=== PATIENT | male | born 2000 | race Two or more races ===

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

== ENCOUNTER 2018-05-17 16:20 | Emergency (ER) | payer OTHER ==
[2018-05-17 16:32] VITALS: BP 125/79; PULSE 79; RESP 18; TEMP 97.3
[2018-05-17] MEDS ORDERED: PANTOPRAZOLE 40 MG/10 ML VIAL IVP STA (17:03)
[2018-05-17] MEDS ORDERED: ONDANSETRON 4 MG/2 ML VIAL IVP STA (17:03)
[2018-05-17] MEDS ORDERED: SODIUM CHLORIDE 0.9% 1,000 ML IV STA ×2 (17:03)
--- NOTE | 2018-05-17 17:36 | ED ---
General Adult HPI - General Chief complaint: Urogenital Stated complaint: abdominal pain Time Seen by Provider: 05/17/18 16:42 Source: patient Mode of arrival: ambulatory Limitations: no limitations - History of Present Illness Initial comments: Dictation was produced using [employer] dictation software. please excuse any grammatical, word or spelling errors. Chief Complaint: 17 yo male presents with genital rash. History of Present Illness: She is a 17-year-old male with no significant past medical history presents with genital rash. He states he woke up this morning and noticed that the dorsal portion of his penis was erythematous. Patient denies any exposure to sexually transmitted diseases. Patient denies any di fficulties urinating. No history of sexually transmitted diseases. Denies any tenderness. The ROS documented in this emergency department record has been reviewed and confirmed by me. Those systems with pertinent positive or negative responses have been documented in the HPI. All other systems are other negative and/or noncontributory. PHYSICAL EXAM: General Impression: Alert and oriented x3, not in acute distress HEENT: Normocephalic atraumatic, extra-ocular movements intact, pupils equal and reactive to light bilaterally, mucous membranes moist. Cardiovascular: Heart regular rate and rhythm, S1&S2 audible, no murmurs, rubs or gallops Chest: Lungs clear to auscultation bilaterally, no rhonchi, no wheeze, no rales Abdomen: Bowel sounds present, abdomen soft, non-tender, non-distended, no organomegaly Musculoskeletal: Pulses present and equal in all extremities, no peripheral edema Motor: no focal deficits noted Neurological: CN II-XII grossly intact, no focal motor or sensory deficits noted Skin: Intact with no visualized rashes Psych: Normal affect and mood : Erythema, scaly rash over the dorsum of the glans and foreskin. ED course: 17-year-old no clinical presentation of balanoposthitis signs upon arrival are within acceptable limits. Patient given antifungal and antibacterial cream. Patient told to follow up with primary care physician upon discharge. Patient refusing STD testing at this time. - Related Data Previous Rx's Medication Instructions Recorded Clotrimazole [Clotrimazole 1% Top 1 applic TOPICAL BID 14 Days #1 05/17/18 Soln] tube Stupfprn-Qreswoyahe-[id number] Oint 1 applic TOPICAL QID #1 tube 05/17/18 [Triple Antibiotic Ointment] Allergies Allergy/AdvReac Type Severity Reaction Status Date / Time bee venom protein (honey bee) Allergy Swelling Verified 05/17/18 16:53 Review of Systems ROS Statement: Those systems with pertinent positive or pertinent negative responses have been documented in the HPI. ROS Other: All systems not noted in ROS Statement are negative. Past Medical History Past Medical History: No Reported History History of Any Multi-Drug Resistant Organisms: None Reported Past Surgical History: No Surgical Hx Reported Past Psychological History: ADD/ADHD Smoking Status: Never smoker Past Alcohol Use History: None Reported Past Drug Use History: None Reported General Exam Limitations: no limitations Course Vital Signs 05/17/18 16:30 Temperature 97.3 F L Pulse Rate 79 Respiratory 18 Rate Blood Pressure 125/79 O2 Sat by Pulse 98 Oximetry Disposition Clinical Impression: Balanoposthitis Disposition: HOME SELF-CARE Instructions (If sedation given, give patient instructions): Balanitis (ED) Prescriptions: Clotrimazole [Clotrimazole 1% Top Soln] 1 applic TOPICAL BID 14 Days #1 tube Dqorkuol-Zkxppcoghw-[id number] Oint [Triple Antibiotic Ointment] 1 applic TOPICAL QID #1 tube Is patient prescribed a controlled substance at d/c from ED?: No Referrals: Lowell Granados MD [Primary Care Provider] - 1-2 days Time of Disposition: 17:36
== END 2018-05-17 17:41 | disposition home or self-care (01) ==
LOC: EC 16:20
DX: N47.6 Balanoposthitis (principal); Z91.030 Bee allergy status
CPT/HCPCS: 99282